=== PATIENT | male | born 1990 | race American Indian/Alaskan Native ===

== ENCOUNTER 2020-01-19 18:06 | Emergency (ER) | payer SELFPAY ==
[2020-01-19 18:12] VITALS: BP 125/64
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
--- NOTE | 2020-01-19 18:48 | XRay Report ---
CHEST 1 VIEW INDICATION / CLINICAL INFORMATION: Chest Pain. COMPARISON: None available. FINDINGS: SUPPORT DEVICES: None. HEART / MEDIASTINUM: No significant abnormality. LUNGS / PLEURA: No significant pulmonary or pleural abnormality. No pneumothorax. ADDITIONAL FINDINGS: No significant additional findings. IMPRESSION: 1. No acute findings. Signer Name: Sally Bunch MD Signed: 01/19/2020 6:44 PM Workstation Name: [id number]
[2020-01-19 18:59] LABS: Basophils % (Auto) 0.9 % (0.0-1.8); Eosinophils # (Auto) 0.1 K/mm3 (0.0-0.4); Eosinophils % (Auto) 2.1 % (0.0-4.3); Hematocrit 39.1 % (35.5-45.6); Hemoglobin 13.4 gm/dl (11.8-15.2); Lymphocytes # (Auto) 2.4 K/mm3 (1.2-5.4); Mean Corpuscular HGB Conc 34 % (32-34); Mean Corpuscular Volume 92 fl (84-94); Monocytes # (Auto) 0.5 K/mm3 (0.0-0.8); Monocytes % (Auto) 8.8 % (0.0-7.3); Platelet Count 245 K/mm3 (140-440); Red Blood Count 4.27 M/mm3 (3.65-5.03); Red Cell Distribution Width 15.7 % (13.2-15.2)
[2020-01-19 19:13] LABS: Alanine Aminotransferase 8 units/L (7-56); Albumin 4.3 g/dL (3.9-5); BUN/Creatinine Ratio 11; Blood Urea Nitrogen 11 mg/dL (9-20); Calcium 9.1 mg/dL (8.4-10.2); Hemolysis Index 10
== END 2020-01-19 21:19 | disposition left against medical advice (07) ==
LOC: ED 18:06
DX: R07.9 Chest pain, unspecified (principal); Z53.21 Procedure and treatment not carried out due to patient leaving prior to being seen by health care provider
CPT/HCPCS: 36415; 71045; 80053; 84484; 85025; 93005

== ENCOUNTER 2020-12-04 09:39 | Emergency (ER) | payer SELFPAY ==
[2020-12-04 09:48] VITALS: BP 114/52
[2020-12-04] MEDS ORDERED: LIDOCAINE-MPF (1%) 10 MG/1 ML VIAL 5 ML INFILTRATI ONE (10:36)
--- NOTE | 2020-12-04 10:36 | Emergency Department Report ---
ED General Adult HPI - General Chief complaint: Rectal Pain Stated complaint: BLEEDING AND PAIN RECTOM Time Seen by Provider: 12/04/20 10:18 Source: patient Mode of arrival: Ambulatory Limitations: No Limitations - History of Present Illness Initial comments: 30 year old male with past medical hx of HIV, non compliant with office visits (x4yrs) and antiretroviral medications, and hx of syphilis, gonorrhea and hemorrhoids in the past presents to ED with compliants of rectal pain. Patient states that his symptoms started gradually about 1.5 weeks ago. He reports associated rectal swelling, intermittent rectal bleed and white discharged. Patient states he is concerned that symptoms may be related to an STD or could be related to hemorrhoids. He describes the bleeding as BRB, mainly after he has BM and when he wipes with tissue. He states he has hx of having hard stools each time he has BM. His last BM was yesterday. He last had rectal intercourse about 3 days ago. He states it was unprotected and with the same partner that he has been with for the past 8 months. He denies any associated abdominal pain, vomiting, nausea, fever, or chills. MD Complaint: Rectal pain -: Gradual, week(s) (1.5) - Related Data Previous Rx's Medication Instructions Recorded Last Taken Type DOXYCYCLINE Hyclate [Vibramycin 100 mg PO BID #14 capsule 12/04/20 Unknown Rx CAP] Docusate Sodium [Colace] 100 mg PO BID #60 capsule 12/04/20 Unknown Rx Ibuprofen [Motrin] 600 mg PO Q8H PRN #30 tablet 12/04/20 Unknown Rx Allergies Allergy/AdvReac Type Severity Reaction Status Date / Time Adhesives Allergy Rash Uncoded 12/04/20 09:43 ED Review of Systems ROS: Stated complaint: BLEEDING AND PAIN RECTOM Other details as noted in HPI Comment: All other systems reviewed and negative Constitutional: denies: chills, fever Eyes: denies: eye pain, eye discharge, vision change ENT: denies: ear pain, throat pain, dental pain, hearing loss, epistaxis, congestion Respiratory: denies: cough, shortness of breath, wheezing Cardiovascular: denies: chest pain, palpitations, dyspnea on exertion, edema, syncope, paroxysmal nocturnal dyspnea Gastrointestinal: constipation, hematochezia, other (rectal pain ). denies: abdominal pain, nausea, vomiting, diarrhea, hematemesis, melena Genitourinary: denies: urgency, dysuria Musculoskeletal: denies: back pain, joint swelling, arthralgia Skin: denies: rash, lesions, change in color, change in hair/nails, pruritus Neurological: denies: headache, weakness, numbness, paresthesias, confusion, abnormal gait, vertigo Psychiatric: denies: anxiety, depression, auditory hallucinations, visual hallucinations, homicidal thoughts, suicidal thoughts Hematological/Lymphatic: denies: easy bleeding, easy bruising, swollen glands ED Past Medical Hx - Past Medical History Hx HIV: Yes - Surgical History Additional Surgical History: hemorrhoid - Social History Smoking Status: Never Smoker Substance Use Type: None - Medications Home Medications: Home Medications Medication Instructions Recorded Confirmed Last Taken Type DOXYCYCLINE Hyclate [Vibramycin 100 mg PO BID #14 capsule 12/04/20 Unknown Rx CAP] Docusate Sodium [Colace] 100 mg PO BID #60 capsule 12/04/20 Unknown Rx Ibuprofen [Motrin] 600 mg PO Q8H PRN #30 tablet 12/04/20 Unknown Rx ED Physical Exam - General Limitations: No Limitations General appearance: alert, in no apparent distress - Head Head exam: Present: atraumatic, normocephalic, normal inspection - Eye Eye exam: Present: normal appearance, PERRL, EOMI Pupils: Present: normal accommodation - ENT ENT exam: Present: normal exam, mucous membranes moist, TM's normal bilaterally - Neck Neck exam: Present: normal inspection, full ROM - Respiratory Respiratory exam: Present: normal lung sounds bilaterally. Absent: respiratory distress, wheezes, rales, rhonchi - Cardiovascular Cardiovascular Exam: Present: regular rate, normal rhythm, normal heart sounds - GI/Abdominal GI/Abdominal exam: Present: soft. Absent: distended, tenderness, guarding, rebound - Rectal Rectal exam: Present: normal rectal tone, tenderness (diffusely on NORBERTO; stool color normal. No no gross blood, or obvious mucousy discharge), other (Vice President Of Nursing present ). Absent: black stool, bloody stool, fecal impaction, hemorrhoids, mass (Vice President Of Nursing present; No obvioius anal fissure, hemorrhoids, abscess noted. ) - Neurological Exam Neurological exam: Present: alert, oriented X3, CN II-XII intact, normal gait - Psychiatric Psychiatric exam: Present: normal affect, normal mood - Skin Skin exam: Present: intact ED Course Vital Signs 12/04/20 09:47 Temperature 98.9 F Pulse Rate 82 Respiratory 20 Rate Blood Pressure 114/52 O2 Sat by Pulse 99 Oximetry Critical care attestation.: If time is entered above; I have spent that time in minutes in the direct care o f this critically ill patient, excluding procedure time. ED Disposition Clinical Impression: Rectal pain, Concern about STD in male without diagnosis, Proctitis Disposition: HOME / SELF CARE / HOMELESS Is pt being admited?: No Does the pt Need Aspirin: No Condition: Stable Instructions: Proctitis Additional Instructions: I recommend that you take the doxycycline as prescribed and to completion. Take the motrin as prescribed for pain. Take the colace daily which will help soften your stool. Your partner should tested and treated for GC. Follow up with [facility] if not better in 1 week. Follow up with your ID specialist. Return to ED if worse. Prescriptions: Docusate Sodium [Colace] 100 mg PO BID #60 capsule Ibuprofen [Motrin] 600 mg PO Q8H PRN #30 tablet PRN Reason: Pain DOXYCYCLINE Hyclate [Vibramycin CAP] 100 mg PO BID #14 capsule Referrals: PRIMARY CARE, [Primary Care Provider] - 3-5 Days [facility] [Provider Group] - 3-5 Days Forms: Work/School Release Form(ED) Time of Disposition: 10:41
== END 2020-12-04 11:06 | disposition home or self-care (01) ==
LOC: ED 09:39
DX: K62.89 Other specified diseases of anus and rectum (principal); Z20.2 Contact with and (suspected) exposure to infections with a predominantly sexual mode of transmission; Z91.048 Other nonmedicinal substance allergy status
CPT/HCPCS: 96372; 99282; J0696

== ENCOUNTER 2021-09-21 05:57 | Emergency (ER) | payer SELFPAY ==
--- NOTE | 2021-09-21 07:59 | Ultrasound Report ---
ULTRASOUND SCROTUM INDICATION / CLINICAL INFORMATION: Testicular pain and swelling. COMPARISON: None available. FINDINGS -- RIGHT: TESTIS: Size = 5.4 x 2.3 x 3.3 cm. - Appearance: Mildly heterogeneous. - Cyst / Mass: None. - Color Doppler Flow: Increased flow in the testicle and epididymis. EPIDIDYMIS: No significant abnormality. HYDROCELE: Mild/moderate with internal septations. VARICOCELE: None demonstrated. FINDINGS -- LEFT: TESTIS: Size = 5.2 x 2.9 x 3.4 cm. - Appearance: Mildly heterogeneous. - Cyst / Mass: None. - Color Doppler Flow: Increased flow in the testicle and epididymis. EPIDIDYMIS: No significant abnormality. HYDROCELE: Mild/moderate with mild internal septation. VARICOCELE: None demonstrated. ADDITIONAL FINDINGS: None. IMPRESSION: 1. Bilateral epididymoorchitis. 2. Mild/moderate complex hydroceles. Signer Name: Nickolas William MD Signed: 09/21/2021 7:55 AM Workstation Name: [id number]
[2021-09-21] MEDS ORDERED: HYDROcodone/ACETAMINOPHEN 5-325 MG TAB PO ONE (08:29)
[2021-09-21] MEDS ORDERED: LIDOCAINE-MPF (1%) 10 MG/1 ML VIAL 5 ML INFILTRATI ONE (08:30)
--- NOTE | 2021-09-21 08:35 | Emergency Department Report ---
HPI - General Chief Complaint: Abdominal Pain Time Seen by Provider: 09/21/21 07:40 - HPI HPI: Room 2 The patient is a 31-year-old male present with chief complaint of testicular pain and swelling. The patient states he has had dysuria for the past 4 days. Patient states the past 3 days his right testicle pain. Patient denies hematuria or penile discharge. Patient denies history of fever. Patient currently gives his pain a score of 10/10 ED Past Medical Hx - Past Medical History Previous Medical History?: Yes Hx HIV: Yes (Currently not on meds states viral load was undetectable. Unknown last CD4) - Surgical History Past Surgical History?: Yes Additional Surgical History: hemorrhoid - Family History Family history: no significant - Social History Smoking Status: Never Smoker Substance Use Type: Marijuana - Medications Home Medications: Home Medications Medication Instructions Recorded Confirmed Last Taken Type DOXYCYCLINE Hyclate [Vibramycin 100 mg PO BID #14 capsule 12/04/20 Unknown Rx CAP] Docusate Sodium [Colace] 100 mg PO BID #60 capsule 12/04/20 Unknown Rx Ibuprofen [Motrin] 600 mg PO Q8H PRN #30 tablet 12/04/20 Unknown Rx HYDROcodone/APAP 5-325 [[place] 1 each PO Q6HR PRN #10 tablet 09/21/21 Unknown Rx 5/325] Ibuprofen [Motrin 800 MG tab] 800 mg PO Q8HR PRN #20 tablet 09/21/21 Unknown Rx levoFLOXacin [Levaquin TAB] 500 mg PO QDAY #10 tablet 09/21/21 Unknown Rx ED Review of Systems ROS: Stated complaint: ABDOMINAL PAIN/SWOLLEN TESTICLES Other details as noted in HPI Constitutional: denies: fever Eyes: denies: eye pain ENT: denies: throat pain Respiratory: no symptoms reported Cardiovascular: denies: chest pain Endocrine: no symptoms reported Gastrointestinal: abdominal pain Genitourinary: dysuria, testicular pain. denies: hematuria, discharge Musculoskeletal: denies: back pain Neurological: denies: headache Physical Exam - Physical Exam Vital Signs: Vital Signs 09/21/21 06:34 Temperature 98.5 F Pulse Rate 91 H Respiratory 14 Rate Blood Pressure 123/84 O2 Sat by Pulse 98 Oximetry Physical Exam: GENERAL: The patient is well-developed well-nourished male lying on stretcher not appearing to be in acute distress. [] HEENT: Normocephalic. Atraumatic. Extraocular motions are intact. Patient has moist mucous membranes. NECK: Supple. Trachea midline CHEST/LUNGS: Clear to auscultation. There is no respiratory distress noted. HEART/CARDIOVASCULAR: Regular. There is no tachycardia. There is no gallop rub or murmur. ABDOMEN: Abdomen is soft, with mild discomfort in the suprapubic/right pelvis region. Patient has normal bowel sounds. There is no abdominal distention. SKIN: There is no rash. There is no edema. There is no diaphoresis. NEURO: The patient is awake, alert, and oriented. The patient is cooperative. The patient has no focal neurologic deficits. The patient has normal speech. GCS 15 MUSCULOSKELETAL: There is bilateral CVA tenderness. There is no evidence of acute injury. ED Course Vital Signs 09/21/21 06:34 Temperature 98.5 F Pulse Rate 91 H Respiratory 14 Rate Blood Pressure 123/84 O2 Sat by Pulse 98 Oximetry ED Medical Decision Making - Lab Data Result diagrams: 09/21/21 08:23 09/21/21 08:23 - Differential Diagnosis Epididymitis, testicular torsion, UTI, Critical care attestation.: If time is entered above; I have spent that time in minutes in the direct care of this critically ill patient, excluding procedure time. ED Disposition Clinical Impression: Epididymo-orchitis, acute Disposition: 01 HOME / SELF CARE / HOMELESS Is pt being admited?: No Does the pt Need Aspirin: No Condition: Stable Instructions: Epididymitis (ED), Epididymitis, Orchitis Additional Instructions: Return to the emergency department should you develop worsening symptoms, inability to tolerate food or liquids, high fever or any other concerns Prescriptions: levoFLOXacin [Levaquin TAB] 500 mg PO QDAY #10 tablet Ibuprofen [Motrin 800 MG tab] 800 mg PO Q8HR PRN #20 tablet PRN Reason: Pain , Severe (7-10) HYDROcodone/APAP 5-325 [[place] 5/325] 1 each PO Q6HR PRN #10 tablet PRN Reason: Pain Referrals: CIPRIANO AZAR MD [Staff Physician] - 3-5 Days (Dr. Azar is a urologist. Please follow-up with him for further evaluation) Forms: STI Treatment and Prevention Time of Disposition: 12:11
[2021-09-21 09:05] LABS: Basophils % (Auto) 0.4 % (0.0-1.8); Eosinophils % (Auto) 0.2 % (0.0-4.3); Hematocrit 38.3 % (35.5-45.6); Hemoglobin 12.6 gm/dl (11.8-15.2); Lymphocytes # (Auto) 2.1 K/mm3 (1.2-5.4); Lymphocytes % (Auto) 18.7 % (13.4-35.0); Mean Corpuscular HGB Conc 33 % (32-34); Mean Corpuscular Volume 88 fl (84-94); Monocytes # (Auto) 0.9 K/mm3 (0.0-0.8); Monocytes % (Auto) 7.9 % (0.0-7.3); Platelet Count 296 K/mm3 (140-440); Red Blood Count 4.34 M/mm3 (3.65-5.03); Red Cell Distribution Width 15.3 % (13.2-15.2)
[2021-09-21 09:26] LABS: BUN/Creatinine Ratio 9; Blood Urea Nitrogen 8 mg/dL (9-20); Calcium 9.2 mg/dL (8.4-10.2); Hemolysis Index 5
[2021-09-21 10:51] LABS: Bilirubin,Urine NEG (Negative); Blood,Urine NEG (Negative); Color,Urine Yellow (Yellow); Protein,Urine <15 mg/dL mg/dL (Negative)
[2021-09-21 10:56] LABS: Mucus,Urine FEW /HPF
[2021-09-21 12:39] VITALS: BP 121/81
== END 2021-09-21 12:20 | disposition home or self-care (01) ==
LOC: ED 05:57
DX: N45.3 Epididymo-orchitis (principal); Z21 Asymptomatic human immunodeficiency virus [HIV] infection status; Z98.890 Other specified postprocedural states
CPT/HCPCS: 36415; 80048; 81001; 85025; 87086; 93975; 96372; 99284; J0696; J3490